=== PATIENT | male | born 1970 | race Caucasian/White ===

== ENCOUNTER 2016-07-03 22:33 | Emergency (ER) | payer OTHER ==
[~2016-07-03] VITALS: Ht 175.3 cm; Wt 92.6 kg
[~2016-07-03 22:33] MED LIST: FLOMAX0.4 MG PO; OXYCODONE10 MG PO; PERCOCET 10-651 EACH PO; TORADOL10 MG PO; ZOFRAN4 MG PO
[2016-07-03 23:10] LABS: HEMATOCRIT 38.2 % (38.0-50.0); MCH 29.3 PG (29.0-34.0); MCHC 33.5 G/DL (30.0-36.0); MCV 87.4 FL (86-99); MEAN PLAT.VOLUME 8.9 uM^3 (9.0-12.4); PLATELET COUNT 232 K/uL (156-360); RBC DIS.WIDTH-CV 11.5 % (11.8-14.6); RBC DIS.WIDTH-SD 37.1 % (39-53); RED BLOOD COUNT 4.37 M/uL (4.00-5.50)
[2016-07-03 23:21] LABS: CHLORIDE 104 mEq/L (99-109); POTASSIUM 3.7 mEq/L (3.7-5.4); SODIUM 142 mEq/L (136-147)
[2016-07-03 23:23] LABS: GLUCOSE 88 mg/dL (70-99)
[2016-07-03 23:24] LABS: ANION GAP 12 MEQ/L (2-14)
[2016-07-03 23:27] LABS: GFR ESTIMATE (CALCULATED) > 59 mL/min/
[2016-07-03 23:28] LABS: UREA NITROGEN (BUN) 10 mg/dL (9-23)
[2016-07-04 00:17] LABS: COLOR RED ((YELLOW))
[2016-07-04 00:18] LABS: ADD MIUA? YES; BILIRUBIN SMALL; BLOOD LARGE; GLUCOSE (STRIP) NEGATIVE; KETONES NEGATIVE; LEUKOCYTES TRACE; NITRITE NEGATIVE; PROTEIN (STRIP) NEGATIVE; UROBILINOGEN 0.2 MG/DL (0.2-1.0)
[2016-07-04 00:33] LABS: RED BLOOD CELLS TNTC /HPF (0-5)
[2016-07-04 00:34] LABS: EPITHELIAL CELLS NONE SEEN /HPF; MUCUS 1+ /LPF
[2016-07-04 00:35] LABS: BACTERIA RARE /HPF; UCUL ADDED? NO
[2016-07-04] MEDS ORDERED: ZOFRAN ODT4 MG PO (01:15)
[2016-07-04] MEDS ORDERED: CIPRO500 MG PO (01:15)
[2016-07-04] MEDS ORDERED: PERCOCET 5/31 TABLET PO (01:15)
[2016-07-04 02:01] VITALS: BP 176/104
== END 2016-07-04 02:08 | disposition home or self-care (01) ==
LOC: EME 22:33
DX: N39.0 Urinary tract infection, site not specified (principal); R31.9 Hematuria, unspecified; Z87.442 Personal history of urinary calculi; F17.200 Nicotine dependence, unspecified, uncomplicated
CPT/HCPCS: 74176; 80048; 81003; 85027; 87086; 99281; 99285; J1885; J2270; J2405; J3010; J7030

== ENCOUNTER 2017-03-11 21:23 | Emergency (ER) | payer OTHER ==
[~2017-03-11] VITALS: Ht 177.8 cm; Wt 89.3 kg
[~2017-03-11 21:23] MED LIST changes: +CIPRO500 MG PO; +PERCOCET 5/31 TABLET PO; +ZOFRAN ODT4 MG PO
[2017-03-12 02:58] VITALS: BP 187/102
== END 2017-03-12 03:42 | disposition home or self-care (01) ==
LOC: EME 21:23
DX: S39.012A Strain of muscle, fascia and tendon of lower back, initial encounter (principal); M54.16 Radiculopathy, lumbar region; X50.9XXA Other and unspecified overexertion or strenuous movements or postures, initial encounter; Y92.89 Other specified places as the place of occurrence of the external cause; F17.200 Nicotine dependence, unspecified, uncomplicated; Z87.442 Personal history of urinary calculi; Z96.642 Presence of left artificial hip joint
CPT/HCPCS: 72131; 99281; 99284; J1100; J1885; J3010